=== PATIENT | female | born 1975 | race Caucasian/White ===

== ENCOUNTER 2019-08-27 18:35 | Emergency (ER) | payer OTHER ==
[2019-08-27 19:02] VITALS: BP 122/68; PULSE 78; TEMP 98.3; BMI 20.3
--- NOTE | 2019-08-27 19:07 | PDOC ---
History of Present Illness - General Chief Complaint: Laceration Stated Complaint: LACERATION Time Seen by Provider: 08/27/19 18:58 History Source: Patient Exam Limitations: No Limitations - History of Present Illness Initial Comments: 08/27/19 18:59 44-year-old female status post laceration to her forehead. was packing, her son was vomiting with gastritis, and she heard him yell. looked up quickly and hit her forhead on the door. Denies LOC no current blood thinners no nausea no vomiting happened just prior to arrival sustained a laceration to her mid forehead 08/27/19 19:19 Past History - Past Medical History Allergies/Adverse Reactions: Allergies Allergy/AdvReac Type Severity Reaction Status Date / Time No Known Allergies Allergy Verified 08/27/19 18:36 Home Medications: Ambulatory Orders NK [No Known Home Medication] 08/27/19 COPD: No - Immunization History Immunization Up to Date: Yes - Psycho Social/Smoking Cessation Hx Smoking History: Never smoked Have you smoked in the past 12 months: No Information on smoking cessation initiated: No Hx Alcohol Use: No Drug/Substance Use Hx: No Review of Systems - Review of Systems Constitutional: No: Chills, Diaphoresis HEENTM: No: Eye Pain Respiratory: No: Cough, Orthopnea, Shortness of Breath Cardiac (ROS): No: Chest Pain, Edema : No: Burning, Dysuria Musculoskeletal: No: Back Pain, Gout, Joint Pain Integumentary: No: Bruising, Change in Color Neurological: Yes: Headache Psychiatric: No: Stressors, Sleep Pattern Change, Change in Appetite All Other Systems: Reviewed and Negative *Physical Exam - Vital Signs Last Vital Signs Temp Pulse Resp BP Pulse Ox 98.3 F 78 20 122/68 100 08/27/19 18:35 08/27/19 18:35 08/27/19 18:35 08/27/19 18:35 08/27/19 18:35 - Physical Exam 08/27/19 19:00 Awake alert no acute distress there is a laceration to the forehead no bony step-offs patient is awake alert and oriented x3 moving all 4 extremities cardiac and lung exam is normal with regular breath sounds bilaterally heart is regular with any murmurs rubs or gallops all extremities are atraumatic GCS 15 Medical Decision Making - Medical Decision Making 08/27/19 19:01 44-year-old female status post head injury with laceration plan plastic surgery consult laceration was sutured patient only discharged home with head injury instructions Discharge - Discharge Information Problems reviewed: Yes Clinical Impression/Diagnosis: Laceration of forehead Condition: Improved Disposition: HOME - Admission No - Follow up/Referral Referrals: Enrrique Telles MD [Staff Physician] - - Patient Discharge Instructions Patient Printed Discharge Instructions: DI for Laceration Repair, DI for Closed Head Injury Additional Instructions: you were given sutures to your laceration . return for vomiting, confusion or any concerns you should follow up with DR Telles in 4 days ( this ) call to confirm your appointemnt. keep clean and dry for 48 hours . if steri strips fall off you can apply bacitracin. - Post Discharge Activity
--- NOTE | 2019-08-29 22:55 | OP ---
DATE OF OPERATION: 08/27/2019 TITLE OF PROCEDURE: A 2-cm simple forehead laceration washout and repair. ATTENDING SURGEON: Enrrique Telles MD. REFERRING PHYSICIAN: Jarrod Dahl MD INDICATION: This is a 44-year-old female who suffered a laceration to the temporal forehead, brought into the [facility] emergency room for evaluation and treatment. PAST MEDICAL AND SURGICAL HISTORY: Noncontributory. REVIEW OF SYSTEMS: Noncontributory. PHYSICAL EXAMINATION: head and neck is traumatically described laceration, otherwise atraumatic. Pupils are round, reactive to light. Extraocular muscles are intact. Patient is counseled on all risks, benefits, and alternatives of washout and repair of laceration, understands and agrees to proceed. DESCRIPTION OF PROCEDURE: Wound is prepped and draped in standard surgical fashion. Wound is copiously irrigated. The margin was injected with a total of 2 mL of 1% lidocaine plain, after which the wound is closed with a series of interrupted 6-0 nylon suture. The wound is dressed with Steri-Strips. Wound care instructions were given. Patient will follow up with Dr. Telles in 1 week. Aranza [id number] cc: Jarrod Dahl MD
== END 2019-08-27 19:21 | disposition home or self-care (01) ==
LOC: FER 18:35
PROC: 0HQ1XZZ Repair Face Skin, External Approach (ICD-10-PCS; principal; 2019-08-27)
DX: S01.81XA Laceration without foreign body of other part of head, initial encounter (principal); W22.01XA Walked into wall, initial encounter; Y93.89 Activity, other specified; Y92.009 Unspecified place in unspecified non-institutional (private) residence as the place of occurrence of the external cause
CPT/HCPCS: 99282-25